=== PATIENT | female | born 1945 | race African-American/Black ===

== ENCOUNTER 2016-08-12 08:30 | Outpatient (RCR) | payer MEDICARE, MEDICAID ==
[~2016-08-12 08:30] MED LIST: ASPIRIN81 MG ORAL; ATIVAN0.5 MG ORAL; ATIVAN1 MG ORAL; COLACE100 MG/10 GT; COZAAR50 MG ORAL; CRANBERRY500 MG PO; CRESTOR10 M1 ORAL; FISH OIL CAP1000 MG ORAL; GABAPENTIN300 MG ORAL; HYDROCHLOROTHIA50 MG ORAL; IBUPROFEN800 MG ORAL; KLONOPIN0.5 MG ORAL; LEXAPRO5 MG ORAL; MACROBID100 MG ORAL; METFORMIN HCL500 M1 ORAL; NORVASC10 MG ORAL; OMEPRAZOLE20 M3 ORAL; TENORMIN25 MG ORAL; VICODIN ES 7.51 EAC1 ORAL; VITAMIN C500 M1 ORAL
== END 2016-08-27 | disposition home or self-care (01) ==
LOC: PTY 08:30
DX: R26.81 Unsteadiness on feet (principal); Z96.653 Presence of artificial knee joint, bilateral; I10 Essential (primary) hypertension; E11.9 Type 2 diabetes mellitus without complications; Z85.9 Personal history of malignant neoplasm, unspecified; M51.35 Other intervertebral disc degeneration, thoracolumbar region; M19.91 Primary osteoarthritis, unspecified site
CPT/HCPCS: 97110; 97140; 97162; G0283; G8978; G8979

== ENCOUNTER 2016-08-28 09:00 | Outpatient (RCR) | payer MEDICARE, MEDICAID | END 2016-09-27 | disposition home or self-care (01) | LOC: PTY 09:00 | DX: R26.81 Unsteadiness on feet (principal); Z96.653 Presence of artificial knee joint, bilateral; I10 Essential (primary) hypertension; E11.9 Type 2 diabetes mellitus without complications; Z85.9 Personal history of malignant neoplasm, unspecified; M51.35 Other intervertebral disc degeneration, thoracolumbar region; M19.91 Primary osteoarthritis, unspecified site | CPT/HCPCS: 97110; G0283 ==

== ENCOUNTER 2017-07-17 10:50 | Outpatient (RCR) | payer MEDICARE, OTHER | END 2017-07-30 | disposition home or self-care (01) | LOC: PTY 10:50 | DX: M67.912 Unspecified disorder of synovium and tendon, left shoulder (principal); M75.02 Adhesive capsulitis of left shoulder; M54.12 Radiculopathy, cervical region; I10 Essential (primary) hypertension; E11.9 Type 2 diabetes mellitus without complications; Z96.653 Presence of artificial knee joint, bilateral | CPT/HCPCS: 97110; 97140; 97163; 97535; G0283; G8984; G8985 ==

== ENCOUNTER 2017-08-19 08:45 | Outpatient (RCR) | payer MEDICARE, OTHER | END 2017-08-27 | disposition home or self-care (01) | LOC: PTY 08:45 | DX: M67.912 Unspecified disorder of synovium and tendon, left shoulder (principal); M75.02 Adhesive capsulitis of left shoulder; M54.12 Radiculopathy, cervical region; I10 Essential (primary) hypertension; E11.9 Type 2 diabetes mellitus without complications; Z96.653 Presence of artificial knee joint, bilateral | CPT/HCPCS: 97035; 97110; 97140; G0283 ==

== ENCOUNTER 2017-08-28 08:00 | Outpatient (RCR) | payer MEDICARE, OTHER ==
[2017-09-09] MEDS ORDERED: COZAAR50 MG ORAL (11:20)
[2017-09-18] MEDS ORDERED: ATIVAN1 MG ORAL (14:25)
== END 2017-09-27 | disposition home or self-care (01) ==
LOC: PTY 08:00
DX: M67.912 Unspecified disorder of synovium and tendon, left shoulder (principal); M75.02 Adhesive capsulitis of left shoulder; M54.12 Radiculopathy, cervical region; I10 Essential (primary) hypertension; E11.9 Type 2 diabetes mellitus without complications; Z96.653 Presence of artificial knee joint, bilateral
CPT/HCPCS: 97110; 97140; G0283; G8984; G8985

== ENCOUNTER 2018-02-25 18:45 | Inpatient (IN) | payer MEDICARE, OTHER ==
[~2018-02-25] VITALS: Ht 167.6 cm; Wt 106.6 kg
[2018-02-25] MEDS ORDERED: Morphine Sulfate 4mg/ml Inj (IV USE ONLY) IVP ONE (19:15)
--- NOTE | 2018-02-25 19:15 | Emergency Room Report ---
History of Present Illness General Chief Complaint: Abdominal Pain Source: Patient, Medical Record Present Illness HPI The patient's been ill since Friday. She's had nausea vomiting diarrhea. Stools been brown and then after taking Pepto-Bismol they've turned darker. She 's felt feverish. She has a self cath and she's worried she might have a UTI at this time. She feels extremely weak. She denies any chest pain or shortness of breath. She was at a [employer]ism conference and ate [place] food with her family just before this began. The rest of her family also are ill with NVD. They are less ill than she is. Abdominal pain is rated 10/10, cramping and diffuse. Pepto might have helped slightly. No chest pain, cough, URI, rashes, joint pain. Multiple abdominal surgeries and SBO in the past. PTCA. Arthritis, HTN, borderline DM Allergies: Coded Allergies: ATORVASTATIN (Verified Allergy, Severe, CRAMPS, 10/11/15) CRAMPS Patient History Past Medical History: see triage record Past Surgical History: PTCA, hysterectomy, other - multiple surgeries Social History: Denies: smoking Social History Narrative with family Reviewed Nursing Documentation: PMH: Agreed; PSxH: Agreed Nursing Documentation-PMH Past Medical History: No History, Except For Hx Cardiac Problems: Yes - ANGIOPLASTY IN 1990 Hx Hypertension: Yes Hx Diabetes: Yes - BLSDDER PROB Review of Systems All Other Systems: negative except mentioned in HPI Physical Exam Vital Signs Date Time Temp Pulse Resp B/P (MAP) Pulse Ox O2 Delivery O2 Flow Rate FiO2 02/25/18 18:58 98.5 73 18 107/70 95 Room Air 98.4 Sp02 EP Interpretation: reviewed, normal General Appearance: no apparent distress, GCS 15, non-toxic, other - frail Head: normocephalic Eyes: bilateral eye normal inspection, bilateral eye PERRL ENT: moist mucus membranes Neck: supple Respiratory: lungs clear, normal breath sounds Cardiovascular #1: regular rate, rhythm Cardiovascular #2: 2+ radial (R) Gastrointestinal: normal inspection, normal bowel sounds, soft, no mass, non- distended, no guarding, no rebound, tenderness - diffuse, overweight Genitourinary: no CVA tenderness Musculoskeletal: back normal, gait/station normal, normal range of motion Neurologic: alert, oriented x3, grossly normal Psychiatric: mood/affect normal Skin: normal inspection, warm/dry Medical Decision Making Diagnostic Impression: Primary Impression: Gastroenteritis Additional Impressions: Renal failure Qualified Codes: N17.9 - Acute kidney failure, unspecified UTI (urinary tract infection) Qualified Codes: N39.0 - Urinary tract infection, site not specified Dehydration ER Course Patient with NVD and abdominal pain. DDx: GItis, diverticulitis, SBO, colitis amongst others. Exam is not surgical. Evaluation with EKG, CXR, abd film, labs. Treatment with IV hydration, zofran and morphine. Family members being sick suggests infectious etiology. EKG without injury. CXR large cor. Abd. NSBGP, no SBO. Labs with normal WBC, sl low H/H. CMP with elevated BUN, creat (above previous). Pyuria. Still with nausea after zofran. Pain somewhat improved. Reglan and benadryl given. Still with weakness and lack of appetite and some abdominal pain. Still soft abdomen. Admit med, Dr. Maynard. Laboratory Tests Test 02/25/18 19:35 02/25/18 19:50 Urine Color Brown Urine Appearance Cloudy Urine pH 5 (4.5-8.0) Urine Specific [place] 1.015 (1.005-1.035) Urine Protein 3+ (NEGATIVE) H Urine Glucose (UA) Negative (NEGATIVE) Urine Ketones 1+ (NEGATIVE) H Urine Blood 2+ (NEGATIVE) H Urine Nitrite Positive (NEGATIVE) H Urine Bilirubin 1+ (NEGATIVE) H Urine Ictotest Negative (NEGATIVE) Urine Urobilinogen 1 MG/DL (0.0-1.0) H Urine Leukocyte Esterase 3+ (NEGATIVE) H Urine RBC 5-10 /HPF (0 - 2) H Urine WBC Tntc /HPF (0 - 2) H Urine Squamous Epithelial Cells Many /LPF (NONE/OCC) H Urine Bacteria Moderate /HPF (NONE) H White Blood Count 4.2 K/UL (4.8-10.8) L Red Blood Count 4.28 M/UL (4.20-5.40) Hemoglobin 13.1 G/DL (12.0-16.0) Hematocrit 38.9 % (37.0-47.0) Mean Corpuscular Volume 91 FL (80-99) Mean Corpuscular Hemoglobin 30.5 PG (27.0-31.0) Mean Corpuscular Hemoglobin Concent 33.6 G/DL (32.0-36.0) Red Cell Distribution Width 11.9 % (11.6-14.8) Platelet Count 190 K/UL (150-450) Mean Platelet Volume 6.5 FL (6.5-10.1) Neutrophils (%) (Auto) 61.5 % (45.0-75.0) Lymphocytes (%) (Auto) 23.7 % (20.0-45.0) Monocytes (%) (Auto) 13.1 % (1.0-10.0) H Eosinophils (%) (Auto) 1.0 % (0.0-3.0) Basophils (%) (Auto) 0.6 % (0.0-2.0) Prothrombin Time 10.4 SEC (9.30-11.50) Prothrombin Time INR 1.0 (0.9-1.1) PTT 25 SEC (23-33) Sodium Level 133 MMOL/L (136-145) L Potassium Level 3.6 MMOL/L (3.5-5.1) Chloride Level 98 MMOL/L (98-107) Carbon Dioxide Level 27 MMOL/L (21-32) Anion Gap 8 mmol/L (5-15) Blood Urea Nitrogen 27 mg/dL (7-18) H Creatinine 1.7 MG/DL (0.55-1.30) H Estimate Glomerular Filtration Rate mL/min (>60) Glucose Level 89 MG/DL (74-106) Calcium Level 9.7 MG/DL (8.5-10.1) Total Bilirubin 0.5 MG/DL (0.2-1.0) Aspartate Amino Transferase (AST) 28 U/L (15-37) Alanine Aminotransferase (ALT) 21 U/L (12-78) Alkaline Phosphatase 63 U/L (46-116) Pro-B-Type Natriuretic Peptide 227 pg/mL (0-125) H Total Protein 7.8 G/DL (6.4-8.2) Albumin 3.8 G/DL (3.4-5.0) Globulin 4.0 g/dL Albumin/Globulin Ratio 0.9 (1.0-2.7) L Lipase 143 U/L (73-393) EKG Diagnostic Results Rate: normal Rhythm: NSR ST Segments: no acute changes Rhythm Strip Diag. Results EP Interpretation: yes Rhythm: NSR, no PVC's, no ectopy Chest X-Ray Diagnostic Results Chest X-Ray Diagnostic Results : Chest X-Ray Ordered: Yes # of Views/Limited/Complete: 1 View Indication: Other EP Interpretation: Yes Interpretation: no consolidation, no effusion, no pneumothorax Impression: Other Electronically Signed by: Electronically signed by Phillip Beltre MD Other X-Ray Diagnostic Results Other X-Ray Diagnostic Results : X-Ray ordered: Abdomen # of Views/Limited Vs Complete: 2 View Indication: Other EP Interpretation: Yes Interpretation: nonspecific bowel gas, no sbo, other - clip and DJD Impression: Other Electronically Signed by: Electronically signed by Phillip Beltre MD Last Vital Signs Date Time Temp Pulse Resp B/P (MAP) Pulse Ox O2 Delivery O2 Flow Rate FiO2 02/26/18 00:19 Room Air 02/26/18 00:13 97.7 60 18 143/84 (103) 100 97.7 Status: improved Disposition: ADMITTED INPATIENT Condition: Serious Phillip Beltre M.D. Feb 25, 2018 19:15
[2018-02-25 20:02] LABS: APPEARANCE,URINE CLOUDY; BILIRUBIN, URINE 1+ (NEGATIVE); COLOR,URINE BROWN; GLUCOSE, URINE (UA) NEGATIVE (NEGATIVE); KETONES,URINE 1+ (NEGATIVE); LEUKOCYTE ESTERASE ,URINE 3+ (NEGATIVE); NITRITE,URINE POSITIVE (NEGATIVE); PH,URINE 5 (4.5-8.0); PROTEIN,URINE 3+ (NEGATIVE); UROBILINOGEN,URINE 1 MG/DL (0.0-1.0)
[2018-02-25 20:10] LABS: BASOPHILS % (AUTO) 0.6 % (0.0-2.0); HEMATOCRIT 38.9 % (37.0-47.0); HEMOGLOBIN 13.1 G/DL (12.0-16.0); LYMPHOCYTES % (AUTO) 23.7 % (20.0-45.0); MEAN CORPUSCULAR VOLUME 91 FL (80-99); MONOCYTES % (AUTO) 13.1 % (1.0-10.0); NEUTROPHILS % (AUTO) 61.5 % (45.0-75.0); PLATELET COUNT 190 K/UL (150-450); RED BLOOD COUNT 4.28 M/UL (4.20-5.40); RED CELL DISTRIBUTION WIDTH 11.9 % (11.6-14.8); WHITE BLOOD COUNT 4.2 K/UL (4.8-10.8)
[2018-02-25 20:25] LABS: ANION GAP 8 mmol/L (5-15); BLOOD UREA NITROGEN 27 mg/dL (7-18); CALCIUM 9.7 MG/DL (8.5-10.1); CARBON DIOXIDE 27 MMOL/L (21-32); CHLORIDE 98 MMOL/L (98-107); CREATININE 1.7 MG/DL (0.55-1.30); POTASSIUM 3.6 MMOL/L (3.5-5.1); SODIUM 133 MMOL/L (136-145)
[2018-02-25 20:36] LABS: ALANINE AMINOTRANSFERASE 21 U/L (12-78); ALBUMIN 3.8 G/DL (3.4-5.0); ALBUMIN/GLOBULIN RATIO 0.9 (1.0-2.7); ALKALINE PHOSPHATASE 63 U/L (46-116); ASPARTATE AMINO TRANSFERASE 28 U/L (15-37); BILIRUBIN,TOTAL 0.5 MG/DL (0.2-1.0)
[2018-02-25 20:55] VITALS: BP 124/69
[2018-02-25] MEDS ORDERED: cefTRIAXone 1 GM in NS 55 ML IVPB ONE (21:45)
[2018-02-25] MEDS ORDERED: DiphenhydrAMINE 50mg/ml Inj IVP ONE (22:15)
[2018-02-25] MEDS ORDERED: Metoclopramide 10mg/2ml Inj IVP ONE (22:15)
[2018-02-25 23:11] VITALS: BP 134/60
[2018-02-25 23:42] VITALS: BP 141/73
[2018-02-26 00:13] VITALS: BP 143/84
[2018-02-26] MEDS: NS w/KCl 20mEq 1,000 ML IV SCH ×3 (01:24→14:44)
[2018-02-26] MEDS ORDERED: Ertapenem 1 GM in NS 55 ML IVPB SCH (02:15)
[2018-02-26] MEDS ORDERED: LORazepam 1mg tab ORAL PRN (02:15)
[2018-02-26 03:59] VITALS: BP 120/58
[2018-02-26] MEDS: Norco 5mg/325mg tab ORAL PRN ×3 (05:56→21:23)
[2018-02-26] MEDS: Heparin 5000 units/ml inj SUBQ SCH ×3 (05:57→21:30)
[2018-02-26] MEDS: NovoLOG Insulin Flexpen SUBQ SCH ×4 (06:00→21:00)
[2018-02-26] MEDS ORDERED: NovoLOG Insulin Flexpen SUBQ SCH (06:30)
[2018-02-26 06:38] LABS: BASOPHILS % (AUTO) 0.8 % (0.0-2.0); EOSINOPHILS % (AUTO) 2.9 % (0.0-3.0); HEMATOCRIT 37.4 % (37.0-47.0); HEMOGLOBIN 12.2 G/DL (12.0-16.0); LYMPHOCYTES % (AUTO) 34.8 % (20.0-45.0); MEAN CORPUSCULAR VOLUME 90 FL (80-99); MONOCYTES % (AUTO) 12.8 % (1.0-10.0); NEUTROPHILS % (AUTO) 48.8 % (45.0-75.0); PLATELET COUNT 177 K/UL (150-450); RED BLOOD COUNT 4.14 M/UL (4.20-5.40); WHITE BLOOD COUNT 3.5 K/UL (4.8-10.8)
[2018-02-26 07:14] LABS: ALANINE AMINOTRANSFERASE 18 U/L (12-78); ALBUMIN 3.1 G/DL (3.4-5.0); ALBUMIN/GLOBULIN RATIO 0.8 (1.0-2.7); ALKALINE PHOSPHATASE 53 U/L (46-116); ANION GAP 10 mmol/L (5-15); ASPARTATE AMINO TRANSFERASE 24 U/L (15-37); BILIRUBIN,TOTAL 0.3 MG/DL (0.2-1.0); BLOOD UREA NITROGEN 20 mg/dL (7-18); CALCIUM 8.9 MG/DL (8.5-10.1); CARBON DIOXIDE 23 MMOL/L (21-32); CHLORIDE 104 MMOL/L (98-107); CREATININE 1.1 MG/DL (0.55-1.30); POTASSIUM 3.8 MMOL/L (3.5-5.1); SODIUM 137 MMOL/L (136-145)
[2018-02-26 08:14] VITALS: BP 127/73
[2018-02-26] MEDS: Aspirin EC 81mg tab ORAL SCH (08:17)
[2018-02-26] MEDS: Atenolol 25mg tab ORAL SCH (08:18)
[2018-02-26] MEDS: Losartan 50mg tab ORAL SCH (08:19)
--- NOTE | 2018-02-26 08:34 | Diagnostic Imaging Report ---
Indication: Shortness of breath Technique: One view of the chest Comparison: 05/03/2013 Findings: There is elevation of the right hemidiaphragm. Lungs and pleural spaces are clear. The heart size is normal Impression: Negative
--- NOTE | 2018-02-26 08:36 | Diagnostic Imaging Report ---
Indication: Abdominal pain Technique: Supine view of the abdomen Comparison: 07/19/2009 Findings: Bowel gas pattern is unremarkable. No unusual masses or calcifications. Surgical clip is seen in the pelvis. Contrast within the renal collecting systems and bladder is not evident currently. There are degenerative changes of the lumbar spine Impression: No acute process
[2018-02-26] MEDS: Ertapenem 0.5gm in NS 55ml IVPB SCH (08:49)
[2018-02-26 11:41] VITALS: BP 130/83
[2018-02-26 16:21] VITALS: BP 121/74
--- NOTE | 2018-02-26 17:45 | History and Physical Report ---
DATE OF ADMISSION: 02/25/2018 HISTORY OF PRESENT ILLNESS: Intractable nausea, vomiting, and diarrhea. HISTORY OF PRESENT ILLNESS: The patient is a very pleasant 73-year-old female, known to me from the office. 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 The patient apparently attended a [employer] convention over the weekend. She ate [place] food on Friday night and the next morning, developed severe nausea, vomiting, and diarrhea. Symptoms were persistent for the last three days. She saw our ton cylinder inspector with these complaints, was weak, and dehydrated. Because of her inability to tolerate p.o.'s and because of dehydration, she is now admitted for further evaluation and care. PAST MEDICAL HISTORY: As above. PAST SURGICAL HISTORY: None. CURRENT MEDICATIONS: Reconciled and reviewed. ALLERGIES: Include Lipitor. FAMILY HISTORY: Significant for dementia, hypertension, and diabetes. SOCIAL HISTORY: Negative for tobacco, ethanol, or drugs. REVIEW OF SYSTEMS: GENERAL: Positive nausea, vomiting, fevers, and chills. HEENT: No headaches or visual changes. CARDIOPULMONARY: No chest pain or shortness of breath. GASTROINTESTINAL: Positive nausea, vomiting, and diarrhea. GENITOURINARY: No blood. No melena. GENITOURINARY: No urgency or frequency. MUSCULOSKELETAL: No joint pain or swelling. NEUROLOGIC: No evidence of seizures. PHYSICAL EXAMINATION: VITAL SIGNS: Temperature 98.3 pulse 53, respirations 18, and blood pressure 141/73. GENERAL: The patient is well-developed, in no apparent distress. HEART: Regular rate and rhythm. LUNGS: Clear. ABDOMEN: Soft, nontender, and nondistended. EXTREMITIES: No clubbing, cyanosis, or edema. LABORATORY DATA: Sodium 133, potassium was 3.6, BUN 27, and creatinine was 1.7. White count 4. Coags normal. UA showed too numerous to count wbc's. ASSESSMENT: This is a pleasant female admitted with complaints of nausea, vomiting, and diarrhea secondary to gastroenteritis. She also has urinary tract infection and acute renal failure due to dehydration. PLAN: 1. IV hydration. 2. Follow up urine cultures. 3. Antiemetics and IV fluids as needed. 4. Follow up pending cultures. 5. Cardiology consultation be obtained. Jitendra Kinney M.D. DR: ANN-MARIE JOB#: [id number] CC:
[2018-02-26 19:42] VITALS: BP 132/79
--- NOTE | 2018-02-26 23:37 | Cardiology Report ---
APPROVED REPORT EKG Measurement Heart [id number] Sinus rhythm with 1st degree AV block Nonspecific T wave abnormality Abnormal ECG
[2018-02-27 00:31] VITALS: BP 144/69
[2018-02-27] MEDS: NS w/KCl 20mEq 1,000 ML IV SCH ×2 (02:19→14:22)
--- NOTE | 2018-02-27 02:45 | Consultation ---
DATE OF CONSULTATION: 02/25/2018 CARDIOLOGY CONSULTATION CONSULTING PHYSICIAN: Phillip Maynard M.D. REQUESTING PHYSICIAN: Jitendra Kinney M.D. REASON FOR CONSULTATION: Dizziness, bradycardia, and hypovolemia in the setting of hypertensive cardiomyopathy. HISTORY OF PRESENT ILLNESS: This is a 73-year-old female with a longstanding history of hypertensive heart disease, diastolic dysfunction, and history of DVT. She has been having several days of nausea, vomiting, and diarrhea. She has been increasingly lightheaded upon standing. She self catheterizes herself for urination due to a neurogenic bladder and has noted darker urine and some fevers. She has been increasingly lightheaded and unable to mobilize out of the bed. The patient has not had any chest pain or shortness of breath. She thinks that she may have gotten sick after eating some [place] food the other night, as other family members have also had similar, although less severe symptoms. PAST MEDICAL HISTORY: Osteoarthritis, hypertension, history of DVT, type 2 diabetes mellitus, neurogenic bladder, hyperlipidemia, depression, history of abdominal surgery, small bowel obstruction, coronary artery disease with history of PTCA, hysterectomy, neurogenic bladder, and chronic kidney disease. SOCIAL HISTORY: Negative for smoking, alcohol, or substance abuse. FAMILY HISTORY: Not remarkable. MEDICATIONS: Prior to admission, reviewed and reconciled. ALLERGIES: Atorvastatin. REVIEW OF SYSTEMS: A 10-point review of systems performed. All systems negative other than noted above. PHYSICAL EXAMINATION: GENERAL: She appears withdrawn, but alert. VITAL SIGNS: Afebrile, blood pressure 107/70, pulse 73, and respiratory rate 18. HEENT: Conjunctivae are pink. Oropharynx clear. Mucous membranes dry. NECK: Supple. Jugular venous pressure normal. LUNGS: Clear. BREASTS: masses. CARDIAC: Regular rhythm and rate. Normal S1 and S2 with no murmur, rub, or gallop. ABDOMEN: Obese and soft. Diffusely tender. No guarding or rebound. No CVA tenderness. EXTREMITIES: With no clubbing or cyanosis. Trace edema. LABORATORY DATA: EKG, sinus rhythm with nonspecific ST-T changes. Chest x-ray with cardiomegaly, no acute process. Urine with too numerous to count white cells. Sodium 133, potassium 3.6, bicarbonate 27, BUN 27, and creatinine 1.7. White count 4.2 and hemoglobin 13.1. IMPRESSION: 1. Nausea, vomiting, and diarrhea likely due to gastroenteritis. 2. Hypovolemia and dehydration. 3. Acute kidney injury secondary to above. 4. Leukopenia, likely due to viral syndrome. 5. Hyponatremia. 6. Chronic diastolic congestive heart failure with mildly elevated BNP of 227. 7. History of DVT, presently not on anticoagulation. 8. Neurogenic bladder with self catheterization and complicated urinary tract infection. PLAN: 1. Intravenous fluid, hydration with saline. 2. Antiemetics. 3. Stool studies. 4. Empiric antibiotics. 5. Hold antihypertensives. 6. Insulin coverage by sliding scale. 7. DVT prophylaxis. Phillip Maynard M.D. DR: BROOK JOB#: [id number] CC:
[2018-02-27] MEDS: Norco 5mg/325mg tab ORAL PRN ×2 (03:31→12:08)
--- NOTE | 2018-02-27 04:00 | Progress Note ---
DATE: 02/26/2018 CARDIOLOGY PROGRESS NOTE SUBJECTIVE: The patient feels better. No longer vomiting, but still very nauseous with poor appetite. Diarrhea has decreased. She did tolerate some oral intake today. OBJECTIVE: VITAL SIGNS: Blood pressure 127/63, pulse 66, respiratory rate 18, and afebrile. LUNGS: Clear. HEART: Regular. ABDOMEN: Soft and nontender. EXTREMITIES: No edema. LABORATORY DATA: Urine culture, gram-negative bacillus. Sodium 137, potassium 3.8, BUN 20, and creatinine 1.1. White count 3.5 and hemoglobin 12.2. IMPRESSION: 1. Urinary tract infection with sepsis. Leukopenia, hypovolemia, dehydration, and neurogenic bladder complicating urinary tract infection due to self-catheterization. 2. Sinus bradycardia due to beta blockers. 3. Hypovolemia and orthostasis, resolved with hydration. 4. History of hypertensive heart disease and chronic diastolic congestive heart failure. PLAN: Continue hydration, restart and titrate antihypertensive, antiemetics, and empiric antibiotics. Pending final urine cultures. Continue self-catheterization. DVT prophylaxis. Phillip Maynard M.D. DR: LI JOB#: [id number] CC:
[2018-02-27 04:46] VITALS: BP 123/69
[2018-02-27] MEDS: NovoLOG Insulin Flexpen SUBQ SCH ×4 (06:30→21:00)
[2018-02-27] MEDS: Heparin 5000 units/ml inj SUBQ SCH ×3 (06:43→21:10)
[2018-02-27 08:09] VITALS: BP 132/73
[2018-02-27] MEDS: Atenolol 25mg tab ORAL SCH (09:00)
[2018-02-27] MEDS: Aspirin EC 81mg tab ORAL SCH (09:23)
[2018-02-27] MEDS: Losartan 50mg tab ORAL SCH (09:24)
[2018-02-27] MEDS: Ertapenem 0.5gm in NS 55ml IVPB SCH (09:24)
[2018-02-27 12:00] VITALS: BP 153/87
--- NOTE | 2018-02-27 12:18 | General Progress Note ---
Assessment/Plan Problem List: (1) Dehydration ICD Codes: E86.0 - Dehydration SNOMED: 34870235 (2) Gastroenteritis ICD Codes: K52.9 - Noninfective gastroenteritis and colitis, unspecified SNOMED: 14114835 (3) Renal failure ICD Codes: N19 - Unspecified kidney failure SNOMED: 76028625 Qualifiers: Qualified Codes: N17.9 - Acute kidney failure, unspecified (4) UTI (urinary tract infection) ICD Codes: N39.0 - Urinary tract infection, site not specified SNOMED: 27729542 Qualifiers: Qualified Codes: N39.0 - Urinary tract infection, site not specified Status: stable Assessment/Plan cont ivf iv abx antimetics mobilize complete at least 3 days iv abx for uti/pyelo Subjective ROS Limited/Unobtainable: No Constitutional: Reports: malaise, weakness HEENT: Reports: no symptoms Cardiovascular: Reports: no symptoms Respiratory: Reports: no symptoms Gastrointestinal/Abdominal: Reports: abdominal pain, nausea Genitourinary: Reports: no symptoms Neurologic/Psychiatric: Reports: no symptoms Endocrine: Reports: no symptoms Hematologic/Lymphatic: Reports: no symptoms Allergies: Coded Allergies: ATORVASTATIN (Verified Allergy, Severe, CRAMPS, 10/11/15) CRAMPS All Systems: reviewed and negative except above Subjective c/o nausea and worsening abd pain. ucx noted. on iv abx. no vomiting. no diarrhea. feels "weak" and dizzy when walking Objective Last 24 Hour Vital Signs Date Time Temp Pulse Resp B/P (MAP) Pulse Ox O2 Delivery O2 Flow Rate FiO2 02/27/18 12:00 97.9 59 18 153/87 (109) 99 97.9 02/27/18 09:24 132/73 02/27/18 09:23 64 132/73 02/27/18 09:00 64 132/73 02/27/18 08:09 97.9 64 18 132/73 (92) 99 97.9 02/27/18 04:46 97.2 57 17 123/69 (87) 94 97.2 02/27/18 04:30 97.2 02/27/18 03:31 97.7 02/27/18 00:31 97.7 59 17 144/69 (94) 95 97.7 02/26/18 21:23 97.3 02/26/18 21:00 Room Air 02/26/18 19:42 97.3 56 18 132/79 (96) 98 97.3 02/26/18 16:21 98.1 59 20 121/74 (90) 99 98.1 Intake and Output 02/26/18 02/27/18 19:00 07:00 Intake Total 1615 ml 1340 ml Output Total 1100 ml 900 ml Balance 515 ml 440 ml Intake Oral 960 ml 240 ml IV Total 655 ml 1100 ml Output Urine Total 1100 ml 900 ml Height (Feet): 5 Height (Inches): 6.00 Weight (Pounds): 235 General Appearance: WD/WN, alert Neck: supple Cardiovascular: normal rate, regular rhythm Respiratory/Chest: chest wall non-tender, lungs clear, normal breath sounds Abdomen: normal bowel sounds, non tender, soft, no organomegaly Edema: no edema noted Arm (L), no edema noted Arm (R), no edema noted Leg (L), no edema noted Leg (R), no edema noted Pedal (L), no edema noted Pedal (R), no edema noted Generalized Jitendra Kinney MD Feb 27, 2018 12:18
[2018-02-27 16:00] VITALS: BP 144/87
[2018-02-27 20:00] VITALS: BP 150/76
[2018-02-28] MEDS: NS w/KCl 20mEq 1,000 ML IV SCH ×2 (00:03→23:08)
[2018-02-28 04:00] VITALS: BP 147/78
--- NOTE | 2018-02-28 04:15 | Progress Note ---
DATE: 02/27/2018 Cardiology Progress Note SUBJECTIVE: The patient has less abdominal pain and nausea, still feels weak and dizzy upon walking. OBJECTIVE: VITAL SIGNS: Blood pressure is ranging from 132/73 to 153/87. She is afebrile. Heart rate 59 to 64. NECK: Supple. LUNGS: Clear. CARDIAC: Regular. Normal S1 and S2 with a fourth heart sound. ABDOMEN: Soft. Mildly distended. No guarding or rebound. EXTREMITIES: No edema. LABORATORY DATA: Urine culture reveals multi-drug resistant E. coli. IMPRESSION: 1. Urinary tract infection. 2. Acute on chronic renal failure. 3. Hypovolemia and dehydration. 4. Hypomagnesemia. 5. Chronic venous insufficiency. 6. Hypertensive heart disease. 7. Neurogenic bladder. 8. ____ history of DVT. PLAN: 1. ____ venous duplex scan resolved. 2. Continue antimicrobials. 3. Hydration. 4. DVT prophylaxis. 5. Optimize antihypertensive therapy. Phillip Maynard M.D. DR: BROOK JOB#: [id number] CC:
[2018-02-28] MEDS: Heparin 5000 units/ml inj SUBQ SCH ×3 (05:45→21:19)
[2018-02-28] MEDS: NovoLOG Insulin Flexpen SUBQ SCH ×4 (06:03→21:00)
[2018-02-28 08:00] VITALS: BP 137/74
[2018-02-28] MEDS ORDERED: Ertapenem 1gm in NS 55ml IVPB SCH (09:00)
--- NOTE | 2018-02-28 09:04 | General Progress Note ---
Assessment/Plan Problem List: (1) Dehydration ICD Codes: E86.0 - Dehydration SNOMED: 63715734 (2) Gastroenteritis ICD Codes: K52.9 - Noninfective gastroenteritis and colitis, unspecified SNOMED: 45037806 (3) Renal failure ICD Codes: N19 - Unspecified kidney failure SNOMED: 70625909 Qualifiers: Qualified Codes: N17.9 - Acute kidney failure, unspecified (4) UTI (urinary tract infection) ICD Codes: N39.0 - Urinary tract infection, site not specified SNOMED: 28748968 Qualifiers: Qualified Codes: N39.0 - Urinary tract infection, site not specified Status: stable Assessment/Plan cont ivf iv abx antimetics mobilize cont iv abx possible dc tomorrow if stable. Subjective ROS Limited/Unobtainable: No Constitutional: Reports: malaise, weakness HEENT: Reports: no symptoms Cardiovascular: Reports: no symptoms Respiratory: Reports: no symptoms Gastrointestinal/Abdominal: Reports: diarrhea, poor appetite Genitourinary: Reports: no symptoms Neurologic/Psychiatric: Reports: anxiety, depressed Endocrine: Reports: no symptoms Hematologic/Lymphatic: Reports: no symptoms Allergies: Coded Allergies: ATORVASTATIN (Verified Allergy, Severe, CRAMPS, 10/11/15) CRAMPS All Systems: reviewed and negative except above Subjective still with green diarrhea and nausea. no chest pain no sob. On iv abx. no fever or chills Objective Last 24 Hour Vital Signs Date Time Temp Pulse Resp B/P (MAP) Pulse Ox O2 Delivery O2 Flow Rate FiO2 02/28/18 04:00 98.6 67 20 147/78 (101) 99 98.6 02/27/18 21:00 Room Air 02/27/18 20:00 98.7 61 17 150/76 (100) 98 98.7 02/27/18 16:00 98.2 61 18 144/87 (106) 99 98.2 02/27/18 12:00 97.9 59 18 153/87 (109) 99 97.9 02/27/18 09:24 132/73 02/27/18 09:23 64 132/73 Intake and Output 02/27/18 02/28/18 19:00 07:00 Intake Total 1885 ml 920 ml Output Total 400 ml 900 ml Balance 1485 ml 20 ml Intake Oral 980 ml 120 ml IV Total 905 ml 800 ml Output Urine Total 400 ml 900 ml # Bowel Movements 2 Height (Feet): 5 Height (Inches): 6.00 Weight (Pounds): 235 Objective General Appearance: WD/WN, alert Neck: supple Cardiovascular: normal rate, regular rhythm Respiratory/Chest: chest wall non-tender, lungs clear, normal breath sounds Abdomen: normal bowel sounds, non tender, soft, no organomegaly Edema: no edema noted Arm (L), no edema noted Arm (R), no edema noted Leg (L), no edema noted Leg (R), no edema noted Pedal (L), no edema noted Pedal (R), no edema noted Generalized Jitendra Kinney MD Feb 28, 2018 09:04
[2018-02-28] MEDS: Atenolol 25mg tab ORAL SCH (10:02)
[2018-02-28] MEDS: Aspirin EC 81mg tab ORAL SCH (10:02)
[2018-02-28] MEDS: Losartan 50mg tab ORAL SCH (10:03)
[2018-02-28] MEDS: cefTRIAXone 1 GM in D5W 55 ML IVPB SCH (10:04)
[2018-02-28 12:00] VITALS: BP 171/92
[2018-02-28 16:00] VITALS: BP 130/76
[2018-02-28 20:00] VITALS: BP 147/76
[2018-03-01] VITALS: BP 126/68
--- NOTE | 2018-03-01 03:15 | Progress Note ---
DATE: 02/28/2018 CARDIOLOGY PROGRESS NOTE SUBJECTIVE: The patient feels slightly better, less nauseous, and still with diarrhea. OBJECTIVE: VITAL SIGNS: Blood pressure 147/78, pulse 67, respiratory rate 20, and afebrile. LUNGS: Clear. CARDIAC: Regular. ABDOMEN: Soft. No guarding or rebound. EXTREMITIES: No edema. IMPRESSION: 1. Urinary tract infection. 2. Sepsis. 3. Neurogenic bladder. 4. Hypomagnesemia. 5. Mild protein-calorie malnutrition. 6. Gastroenteritis. 7. Hypovolemia. 8. Dehydration. 9. Hypertensive heart disease. 10. History of deep venous thrombosis. PLAN: 1. Follow up venous duplex study. 2. Continue antibiotics. 3. Respiratory hygiene. 4. DVT prophylaxis. 5. Follow up lab studies. 6. Discharge planning. Phillip Maynard M.D. DR: NATHALY JOB#: [id number] CC:
[2018-03-01 04:00] VITALS: BP 141/78
[2018-03-01] MEDS: Heparin 5000 units/ml inj SUBQ SCH ×3 (05:41→20:20)
[2018-03-01] MEDS: NovoLOG Insulin Flexpen SUBQ SCH ×4 (06:25→20:26)
[2018-03-01 07:44] LABS: BASOPHILS % (AUTO) 0.6 % (0.0-2.0); EOSINOPHILS % (AUTO) 2.8 % (0.0-3.0); HEMATOCRIT 37.6 % (37.0-47.0); HEMOGLOBIN 12.4 G/DL (12.0-16.0); LYMPHOCYTES % (AUTO) 42.3 % (20.0-45.0); MEAN CORPUSCULAR VOLUME 91 FL (80-99); NEUTROPHILS % (AUTO) 43.3 % (45.0-75.0); PLATELET COUNT 196 K/UL (150-450); RED BLOOD COUNT 4.13 M/UL (4.20-5.40); RED CELL DISTRIBUTION WIDTH 11.7 % (11.6-14.8); WHITE BLOOD COUNT 3.6 K/UL (4.8-10.8)
[2018-03-01 07:55] LABS: ALANINE AMINOTRANSFERASE 22 U/L (12-78); ALBUMIN 3.1 G/DL (3.4-5.0); ALBUMIN/GLOBULIN RATIO 0.8 (1.0-2.7); ALKALINE PHOSPHATASE 61 U/L (46-116); ANION GAP 5 mmol/L (5-15); ASPARTATE AMINO TRANSFERASE 24 U/L (15-37); BILIRUBIN,TOTAL 0.4 MG/DL (0.2-1.0); BLOOD UREA NITROGEN 11 mg/dL (7-18); CALCIUM 9.5 MG/DL (8.5-10.1); CARBON DIOXIDE 31 MMOL/L (21-32); CHLORIDE 105 MMOL/L (98-107); POTASSIUM 4.5 MMOL/L (3.5-5.1); SODIUM 140 MMOL/L (136-145)
[2018-03-01 08:00] VITALS: BP 161/91
--- NOTE | 2018-03-01 08:03 | General Progress Note ---
Assessment/Plan Problem List: (1) Dehydration ICD Codes: E86.0 - Dehydration SNOMED: 84550013 (2) Gastroenteritis ICD Codes: K52.9 - Noninfective gastroenteritis and colitis, unspecified SNOMED: 84631758 (3) Renal failure ICD Codes: N19 - Unspecified kidney failure SNOMED: 35647272 Qualifiers: Qualified Codes: N17.9 - Acute kidney failure, unspecified (4) UTI (urinary tract infection) ICD Codes: N39.0 - Urinary tract infection, site not specified SNOMED: 30249608 Qualifiers: Qualified Codes: N39.0 - Urinary tract infection, site not specified Status: stable, progressing Assessment/Plan cont ivf iv abx antimetics mobilize cont iv abx laxatives possible dc if has bowel movement Subjective ROS Limited/Unobtainable: No Constitutional: Reports: weakness HEENT: Reports: no symptoms Cardiovascular: Reports: no symptoms Respiratory: Reports: no symptoms Gastrointestinal/Abdominal: Reports: abdominal pain, constipated, nausea Genitourinary: Reports: no symptoms Neurologic/Psychiatric: Reports: no symptoms Endocrine: Reports: no symptoms Hematologic/Lymphatic: Reports: no symptoms Allergies: Coded Allergies: ATORVASTATIN (Verified Allergy, Severe, CRAMPS, 10/11/15) CRAMPS All Systems: reviewed and negative except above Subjective now with constipation and nausea. requesting laxative. mild pain. no vomiting Objective Last 24 Hour Vital Signs Date Time Temp Pulse Resp B/P (MAP) Pulse Ox O2 Delivery O2 Flow Rate FiO2 03/01/18 04:00 98.0 61 17 141/78 (99) 98 98.0 03/01/18 00:00 98.4 60 16 126/68 (87) 99 98.4 02/28/18 21:00 Room Air 02/28/18 20:00 98.6 61 18 147/76 (99) 99 98.6 02/28/18 16:00 98.3 57 20 130/76 (94) 98 98.3 02/28/18 12:11 174/92 02/28/18 12:00 98.2 65 18 171/92 (118) 97 98.2 02/28/18 10:03 137/74 02/28/18 10:02 68 137/74 02/28/18 10:02 68 137/74 02/28/18 09:00 Room Air Intake and Output 02/28/18 03/01/18 19:00 07:00 Intake Total 480 ml 940 ml Balance 480 ml 940 ml Intake Oral 480 ml 240 ml IV Total 700 ml # Voids 3 3 Laboratory Tests 03/01/18 06:35: White Blood Count 3.6L, Red Blood Count 4.13L, Hemoglobin 12.4, Hematocrit 37.6 , Mean Corpuscular Volume 91, Mean Corpuscular Hemoglobin 30.0, Mean Corpuscular Hemoglobin Concent 33.0, Red Cell Distribution Width 11.7, Platelet Count 196, Mean Platelet Volume 5.9L, Neutrophils (%) (Auto) 43.3L, Lymphocytes (%) (Auto) 42.3, Monocytes (%) (Auto) 11.0H, Eosinophils (%) (Auto) 2.8, Basophils (%) (Auto) 0.6, Sodium Level 140, Potassium Level 4.5, Chloride Level 105, Carbon Dioxide Level 31, Anion Gap 5, Blood Urea Nitrogen 11, Creatinine 1.0, Estimat Glomerular Filtration Rate , Glucose Level 103, Calcium Level 9.5, Magnesium Level 1.6L, Total Bilirubin 0.4, Aspartate Amino Transf (AST/SGOT) 24 , Alanine Aminotransferase (ALT/SGPT) 22, Alkaline Phosphatase 61, Total Protein 6.9, Albumin 3.1L, Globulin 3.8, Albumin/Globulin Ratio 0.8L Height (Feet): 5 Height (Inches): 6.00 Weight (Pounds): 235 Objective General Appearance: WD/WN, alert Neck: supple Cardiovascular: normal rate, regular rhythm Respiratory/Chest: chest wall non-tender, lungs clear, normal breath sounds Abdomen: normal bowel sounds, non tender, soft, no organomegaly Edema: no edema noted Arm (L), no edema noted Arm (R), no edema noted Leg (L), no edema noted Leg (R), no edema noted Pedal (L), no edema noted Pedal (R), no edema noted Generalized Jitendra Kinney MD Mar 01, 2018 08:03
[2018-03-01] MEDS ORDERED: Milk of Magnesia 30ml Ud ORAL PRN (08:15)
[2018-03-01] MEDS ORDERED: Miralax 17gm pkt ORAL PRN (08:15)
[2018-03-01] MEDS: Losartan 50mg tab ORAL SCH (08:40)
[2018-03-01] MEDS: Atenolol 25mg tab ORAL SCH (08:41)
[2018-03-01] MEDS: NS w/KCl 20mEq 1,000 ML IV SCH ×2 (08:41→19:15)
[2018-03-01] MEDS: cefTRIAXone 1 GM in D5W 55 ML IVPB SCH (08:42)
[2018-03-01] MEDS: Aspirin EC 81mg tab ORAL SCH (08:44)
[2018-03-01 12:00] VITALS: BP 151/79
[2018-03-01 16:00] VITALS: BP 155/60
[2018-03-01 20:00] VITALS: BP 162/82
--- NOTE | 2018-03-01 21:00 | Progress Note ---
DATE: 03/01/2018 NOTE: INCOMPLETE DICTATION SUBJECTIVE: due to constipation and secondary nausea, some abdominal pain noted. OBJECTIVE: VITAL SIGNS: Blood pressure 141/78, pulse 61, respiratory rate 17. LUNGS: Clear. CARDIAC: Regular. Normal S1, S2. ABDOMEN: Soft. No focal tenderness, guarding, or rebound. EXTREMITIES: No edema. LABORATORY AND DIAGNOSTIC DATA: Venous duplex study is still pending. White count 3.6, hemoglobin 12.4. Magnesium 1.6. Potassium 4.5. Albumin 3.1. IMPRESSION: 1. Constipation, resolved. 2. Diarrhea. 3. Hypomagnesemia. 4. Urinary tract infection. 5. Neurogenic bladder. 6. Chronic catheterization requirement. 7. History of DVT. 8. Chronic venous insufficiency. 9. Hypertensive heart disease with diastolic dysfunction. PLAN: 1. Bowel regimen. 2. IV magnesium. 3. Await venous duplex scan. 4. DVT prophylaxis. 5. Titrate antihypertensive regimen. Phillip Maynard M.D. DR: Jacques JOB#: [id number] CC:
[2018-03-02] VITALS: BP 142/76
[2018-03-02 04:00] VITALS: BP 149/80
[2018-03-02] MEDS: NS w/KCl 20mEq 1,000 ML IV SCH (05:15)
[2018-03-02] MEDS: Heparin 5000 units/ml inj SUBQ SCH (06:00)
[2018-03-02] MEDS: NovoLOG Insulin Flexpen SUBQ SCH ×2 (06:03→11:30)
[2018-03-02 08:00] VITALS: BP 148/76
[2018-03-02] MEDS: Losartan 50mg tab ORAL SCH (08:37)
[2018-03-02] MEDS: Aspirin EC 81mg tab ORAL SCH (08:37)
[2018-03-02 08:38] VITALS: BP 174/75
[2018-03-02] MEDS: cefTRIAXone 1 GM in D5W 55 ML IVPB SCH (08:38)
[2018-03-02] MEDS: Atenolol 25mg tab ORAL SCH (08:38)
--- NOTE | 2018-03-02 19:45 | Discharge Summary ---
DATE OF ADMISSION: 02/25/2018 DATE OF DISCHARGE: 03/02/2018 ADMISSION DIAGNOSES: 1. Possible gastroenteritis. 2. Acute renal failure. 3. Dehydration. 4. Toxic metabolic encephalopathy. 5. Possible early sepsis. 6. Pyelonephritis. DISCHARGE DIAGNOSES: 1. Possible gastroenteritis. 2. Acute renal failure. 3. Dehydration. 4. Toxic metabolic encephalopathy. 5. Possible early sepsis. 6. Pyelonephritis. HOSPITAL COURSE: The patient is a pleasant female who presented initially with complaints of severe dehydration secondary to diarrhea. She had may have done food poisoning. She had diarrhea while in-house. She received antidiarrheals. She had some gradual improvement. She was noted to be in acute renal failure with creatinine of 1.7. She was hydrated. Renal function improved. She was diagnosed with possible pyelonephritis and early sepsis secondary to E. coli UTI. She received IV antibiotics. She had gradual improvement in her pain, nausea, vomiting, and diarrhea. On discharge, she was stable. She will be discharged home. She will continue her regular medications. DISCHARGE MEDICATIONS: Please see discharge medication list for discharge medications. DIET: Cardiac diet. ACTIVITY: Ad-shan. FOLLOWUP: The patient is to follow up in two weeks in the office. Jitendra Kinney M.D. DR: Jesus JOB#: [id number] CC:
--- NOTE | 2018-03-03 02:15 | Progress Note ---
DATE: 03/02/2018 Cardiology Progress Note SUBJECTIVE: The patient feels better. Still some nausea and abdominal discomfort, but tolerating diet with no vomiting. Urine has cleared. OBJECTIVE: VITAL SIGNS: Blood pressure 148/76, pulse 64, and respiratory rate 18. LUNGS: Clear. CARDIAC: Regular. ABDOMEN: Soft. No edema. PLAN: Venous duplex scan is pending and will be done as an outpatient. At this time, she is stable for outpatient followup with mildly elevated blood pressure readings. No signs of acute congestive heart failure. Medication regimen reviewed. Optimization of therapy will be completed as an outpatient. Phillip Maynard M.D. DR: BROOK JOB#: [id number] CC:
== END 2018-03-02 12:45 | disposition home or self-care (01) | DRG 871 ==
LOC: EMR 19:55 → EDBEDREQ 22:28 → 4W 22:38 → EDBEDREQ 22:52 → 4W 02-26 01:15 → 3E 02-27 17:22
DX: A41.9 Sepsis, unspecified organism (principal); G93.40 Encephalopathy, unspecified; N39.0 Urinary tract infection, site not specified; N17.9 Acute kidney failure, unspecified; I13.0 Hypertensive heart and chronic kidney disease with heart failure and stage 1 through stage 4 chronic kidney disease, or unspecified chronic kidney disease; I50.32 Chronic diastolic (congestive) heart failure; E44.1 Mild protein-calorie malnutrition; K52.9 Noninfective gastroenteritis and colitis, unspecified; E86.0 Dehydration; M19.90 Unspecified osteoarthritis, unspecified site; Z86.718 Personal history of other venous thrombosis and embolism; E78.5 Hyperlipidemia, unspecified; I25.10 Atherosclerotic heart disease of native coronary artery without angina pectoris; Z95.5 Presence of coronary angioplasty implant and graft; N18.9 Chronic kidney disease, unspecified; E11.22 Type 2 diabetes mellitus with diabetic chronic kidney disease; N31.9 Neuromuscular dysfunction of bladder, unspecified; Z88.8 Allergy status to other drugs, medicaments and biological substances; E83.42 Hypomagnesemia
CPT/HCPCS: 36415; 71045; 74018; 80053; 81003; 82962; 83690; 83735; 83880; 84443; 85025; 85610; 85730; 87086; 87181; 93005; 99285; J1815; J2405

== ENCOUNTER → 2020-02-09 | Outpatient (CLI) | payer MEDICARE, OTHER ==
[~2020-02-09] VITALS: Ht 167.6 cm; Wt 118.8 kg
[~2020-02-09] MED LIST changes: +ACETAMINOPHEN325 M1 ORAL; +BACTRIM DS TAB1 EAC1 ORAL; +CRANBERRY PLUS1 EAC1 PO; +CRANBERRY200 M1 PO; +CRANBERRY400 MG PO; +CRANBERRY500 M4 PO; +DOCUSATE SODIU100 MG ORAL; +ESCITALOPRAM OX10 MG ORAL; +Heparin1,000 units/500ml Premix(Conc:2 units/ml) IV PRN; +IBUPROFEN600 MG ORAL; +LOSARTAN POTAS100 MG ORAL; +Lidocaine 1% Plain 30 ml INJ PRN; +NITROFURANTOIN100 M2 ORAL; +NORCO 5-325 TA1 EACH ORAL; +OMEGA 3 FISH O1 EAC1 PO; +POLYETHYLENE GL17 GM ORAL; +TRAMADOL HCL50 MG ORAL; +TRIAMTERENE-HC1 EAC5 ORAL; +TYLENOL EXTRA500 MG ORAL; +TYLENOL325 MG ORAL; +VITAMIN D1000 UNI1 ORAL
--- NOTE | 2020-02-09 14:48 | Pre-Procedure Note/Attestation ---
Pre-Procedure Note/Attestation Complete Prior to Procedure Planned Procedure: not applicable Procedure Narrative: PICC Indications for Procedure Pre-Operative Diagnosis: UTI, needs ABX Attestation I attest that I discussed the nature of the procedure; its benefits; risks and complications; and alternatives (and the risks and benefits of such alternatives ), prior to the procedure, with the patient (or the patient's legal help desk representative). I attest that, if there was a reasonable possibility of needing a blood transfusion, the patient (or the patient's legal help desk representative) was given the [facility] standardized written summary, pursuant to the Markie Raymundo Blood Safety Act ([place] Health and Safety Code # 1645, as amended). I attest that I re-evaluated the patient just prior to the surgery and that there has been no change in the patient's H&P, except as documented below: Saravanan Abel MD Feb 09, 2020 14:48
--- NOTE | 2020-02-09 14:48 | Brief Operative Note ---
Immediate Post Operative Note Operative Note Pre-op Diagnosis: UTI, needs ABX Procedure: PICC Post-op Diagnosis: same as pre-op Surgeon: Siomara ABEL Anesthesia: local Specimen: none Complications: none Fluids: none Implant(s) used?: No Saravanan Abel MD Feb 09, 2020 14:48
--- NOTE | 2020-02-09 18:01 | Diagnostic Imaging Report ---
Indications: Needs long-term IV access Technique: Ultrasound confirms patent compressible left basilic vein. Total sterile technique, including sterile probe cover and sterile gel, hat, mask, sterile gown, large sterile drape, and preparation with 2% chlorhexidine utilized. Local anesthesia with 1% lidocaine. Under real-time ultrasound guidance, puncture basilic vein using 21-gauge needle, documented and archived, passage 0.018 guidewire under direct fluoroscopy, which was used to determine appropriate catheter length, exchange for 4 Malagasy peel-away sheath. 4 Malagasy Bard dual-lumen power PICC cut to 46 cm. It was inserted through the peel-away sheath. Peel-away sheath and guidewire removed. Catheter fixed to the skin. Both catheter ports aspirated and flushed. Patient tolerated procedure well, without immediate complication. Digital radiograph documents satisfactory catheter tip position, at the mid superior vena cava. Total fluoroscopy time 117 seconds. Total dose area product 20 mGym2 Total number of images: 1 Impression: Successful placement of left arm PICC under sonographic and fluoroscopic guidance, as described above.
== END | disposition home or self-care (01) ==
LOC: RAD 12:18
DX: N39.0 Urinary tract infection, site not specified (principal); Z79.899 Other long term (current) drug therapy
CPT/HCPCS: 36569; 76937; J1644; J2001

== ENCOUNTER → 2020-03-08 | Outpatient (CLI) | payer MEDICARE, OTHER ==
[~2020-03-08] MED LIST changes: -Heparin1,000 units/500ml Premix(Conc:2 units/ml) IV PRN; -Lidocaine 1% Plain 30 ml INJ PRN
--- NOTE | 2020-03-08 17:22 | Diagnostic Imaging Report ---
Indication: Right ankle pain Technique: 3 views of the ] ankle Comparison: none Findings: No acute fractures. No dislocations. Numerous phleboliths are noted. Impression: No acute bony trauma
== END | disposition home or self-care (01) ==
LOC: RAD 11:51
DX: S99.911A Unspecified injury of right ankle, initial encounter (principal); M25.571 Pain in right ankle and joints of right foot; X58.XXXA Exposure to other specified factors, initial encounter; Y92.9 Unspecified place or not applicable